=== PATIENT | male | born 1980 | race Asian ===

== ENCOUNTER 2021-03-13 11:36 | Emergency (ER) | payer OTHER ==
[~2021-03-13] VITALS: Ht 165.1 cm; Wt 83.3 kg
[2021-03-13] MEDS ORDERED: DIAZEPAM 5 MG TABLET ONE (12:17)
[2021-03-13] MEDS ORDERED: KETOROLAC 30 MG/1 ML ONE (12:17)
[2021-03-13] MEDS ORDERED: KETOROLAC 30 MG/1 ML IM ONE (12:30)
[2021-03-13] MEDS ORDERED: DIAZEPAM 5 MG TABLET PO ONE (12:30)
--- NOTE | 2021-03-13 12:50 | NUR ---
PEE RALPH, AT BS TO DISCUSS POC WITH PT AT THIS TIME.
[2021-03-13 13:03] LABS: BASOPHILS % (AUTO) 1 % (0-1); EOSINOPHILS % (AUTO) 2 % (1-7); LYMPHOCYTES % (AUTO) 17 % (22-44); MEAN CORPUSCULAR HEMOGLOBIN 30.6 pg (27.5-34.5); MEAN CORPUSCULAR HGB CONC 34.7 g/dL (33.2-36.2); MEAN PLATELET VOLUME 8.7 fL (7.4-10.4); MONOCYTES % (AUTO) 6 % (2-9); NEUTROPHILS % (AUTO) 75 % (42-75); PLATELET COUNT 322 x10^3/uL (130-400); RED CELL DISTRIBUTION WIDTH 13.1 % (9.4-14.8)
[2021-03-13 13:13] LABS: ANION GAP 7 mmol/L (5-15); CALCIUM 9.2 mg/dL (8.5-10.1); CHLORIDE 101 mmol/L (98-107); CREATININE 1.52 mg/dL (0.7-1.3)
[2021-03-13 13:22] VITALS: BP 156/101
[2021-03-13] MEDS ORDERED: SODIUM CHLORIDE 0.9% 1,000ML IVBOLUS ONE (14:00)
== END 2021-03-13 15:32 | disposition home or self-care (01) ==
LOC: ED 15:00
DX: S16.1XXA Strain of muscle, fascia and tendon at neck level, initial encounter (principal); N28.9 Disorder of kidney and ureter, unspecified; I10 Essential (primary) hypertension; E11.9 Type 2 diabetes mellitus without complications; X58.XXXA Exposure to other specified factors, initial encounter; Y93.89 Activity, other specified; Y92.89 Other specified places as the place of occurrence of the external cause; Y99.8 Other external cause status
CPT/HCPCS: 36415; 71045; 80048; 82040; 85025; 93005; 96360; 96372; 99285; J1885; J7030